=== PATIENT | female | born 1965 | race Caucasian/White ===

== ENCOUNTER 2020-10-01 07:33 | Observation (INO) ==
--- NOTE | 2020-09-26 09:18 | Anesthesiology Consultation ---
Date of Service September 26, 2020 Assessment & Plan (1) Encounter for pre-operative examination: Chart Review Chart Review: Acceptable Risk for Surgery and Patient NOT seen in Pre Admission Testing Per nursing assessment 09/18/20, patient denies any recent travel. 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 Wears PPE. No current Covid related symptoms. No known Covid infection in the past 90 days. Covid test 09/25/20= negative. Will leave to anesthesia discretion DOS if repeat rapid Covid test, additional PPE and/or additional surgery time needed DOS due to patient's occupation. History Surgery Operation Date: 10/01/20 09:20 Proposed Procedures p Panniculectomy - Jany Burnette MD Height/Weight Height: 5 ft 7 in Weight: 88.451 kg Allergies Allergy/AdvReac Type Severity Reaction Status Date / Time diphenhydramine Allergy Intermediate HEART Verified 09/18/20 09:01 FLUTTERS Medications Home Medications Medication Instructions Recorded Confirmed Last Taken doxycycline monohydrate 40 mg 40 mg PO QAM 07/17/20 09/18/20 Unknown capsule,immediate - delay release oxycodone-acetaminophen 5 mg-325 1 tab PO Q4H PRN #18 tab 09/10/20 09/10/20 Unknown mg tablet levothyroxine 175 mcg PO QAM 09/18/20 09/18/20 Unknown Past Medical History Medical History Fatty liver Hypertension hx - resolved following wt loss Hypothyroidism Migraines Sleep apnea "mild" - no CPAP/BiPAP Spinal stenosis Past Family History Family History Mother Liver cancer Other No family history of adverse response to anesthesia Past Surgical History Surgical History History of colonoscopy History of foot surgery Left History of gastric bypass History of meniscectomy of left knee History of partial hysterectomy History of tonsillectomy History of tubal ligation Hx of LASIK Social History Smoking Status: Never smoker Do You Dip or Chew Tobacco: No Hx Alcohol Use: No Hx Substance Use: No substance use type: does not use Lab Results Anesthesia Preop Results Results Anesthesia Widget: WBC 8.83 K/uL (4.8-10.8) 09/25/20 Hgb 14.7 g/dL (12.0-16.0) 09/25/20 Hct 44.0 % (37-47) 09/25/20 Plt 251 K/uL (130-400) 09/25/20 Na 144 mmol/L (136-145) 09/25/20 K 3.6 mmol/L (3.5-5.1) 09/25/20 Cl 112 mmol/L (98-107) H 09/25/20 CO2 26 mmol/L (21-32) 09/25/20 BUN 16 mg/dl (7-18) 09/25/20 Creat 0.79 mg/dl (0.6-1.2) 09/25/20 Glucose Level 143 mg/dl (70-99) H 09/25/20 PT 9.8 Seconds (9.0-12.0) 09/25/20 PTT 26.0 Seconds (21.0-31.0) 09/25/20 INR 1.0 (0.9-1.1) 09/25/20 Testing Electrocardiogram Date: 09/25/20 Findings: + NSR @ (92bpm) Minimal voltage criteria for LVH, may be normal variant. Nonspecific T wave abnormality.
[~2020-10-01 07:33] MED LIST: LR 15ML/HR IV SCH; ceFAZolin 2000MG 2,000 MG/15 ML SYR IV SCH
[2020-10-01] MEDS ORDERED: ONDANSETRON INJ 2 MG/ML 2 ML VIAL ONE ×2 (08:19→10:54)
[2020-10-01] MEDS ORDERED: DEXAMETHASONE SOD INJ 4 MG/ML VIAL ONE (08:19)
[2020-10-01] MEDS ORDERED: PROPOFOL IV EMULSION 10 MG/ML 20 ML VIAL IV ONE (08:19)
[2020-10-01] MEDS ORDERED: fentaNYL citrate 100 MCG/2 ML VIAL ONE (08:19)
[2020-10-01] MEDS ORDERED: LIDOCAINE HCL 2% 2 ML VIAL/AMP(20MG/ML) INFIL ONE (08:19)
[2020-10-01] MEDS ORDERED: MIDAZOLAM HCL 1 MG/ML 2ML VIAL ONE (08:20)
--- NOTE | 2020-10-01 09:35 | History & Physical Bridge Note ---
Date of Service October 01, 2020 History & Physical Bridge Note I have examined the patient, reviewed the History & Physical and in the interval since the performance of the History & Physical I have noted the following changes of clinical significance: no changes noted
[2020-10-01] MEDS ORDERED: BUPIVACAINE 0.25% 30 ML VIAL ONE (09:39)
[2020-10-01] MEDS ORDERED: LIDOCAINE/EPINEPHRINE 1% 20 ML VIAL ONE (09:39)
[2020-10-01] MEDS ORDERED: ONDANSETRON INJ 2 MG/ML 2 ML VIAL IV PRN ×2 (09:50→13:36)
[2020-10-01] MEDS ORDERED: ePHEDrine sulfate 50 MG/ML AMP IV PRN (09:50)
[2020-10-01] MEDS ORDERED: fentaNYL citrate 100 MCG/2 ML VIAL IV PRN (09:50)
[2020-10-01] MEDS ORDERED: ATROPINE SULFATE 0.1 MG/ML 10ML SYR IV PRN (09:50)
[2020-10-01] MEDS ORDERED: ePHEDrine sulfate 50 MG/ML SYR ONE (10:54)
[2020-10-01] MEDS ORDERED: THROMBIN FOR SOLN 20000 UNIT KIT ONE (10:54)
[2020-10-01] MEDS ORDERED: ROCURONIUM BROMIDE 10 MG/ML 5 ML VIAL IV ONE (10:54)
[2020-10-01] MEDS ORDERED: GELATIN SPONGE SZ 100 ONE (10:54)
[2020-10-01] MEDS ORDERED: NEOSTIGMINE METHYLSULFATE 5 MG/5 ML SYR ONE (10:57)
[2020-10-01] MEDS ORDERED: GLYCOPYRROLATE 0.2 MG/ML VIAL ONE (10:57)
[2020-10-01] MEDS ORDERED: HYDROmorphone INJ 2 MG/ML SYR/VIAL ONE (11:46)
--- NOTE | 2020-10-01 13:31 | Post Operative Brief Note ---
PG Immediate Post Op with CF Date of Surgery October 01, 2020 Pre & Post Diagnosis Operation Date: 10/01/20 09:20 Pre-Op Diagnosis: Abdominal Pannus Post-Op Diagnosis: Abdominal Pannus I identified the patient and participated in the time-out.: Yes Procedure Operation Date: 10/01/20 09:20 Actual Procedures p Panniculectomy(Not Applicable) - Jany Burnette MD Surgeon Jany Burnette MD Director Of Parks And Re[employer] Dolores Soto PA-C Estimated Blood Loss 50 Findings Consistent with Post-Op Diagnosis Specimens Specimen Description: Fresh Specimens: A. Abdominal Pannus Weight= 8.8lbs/3991.61g Drains Montiel Catheter and Ramesh-Landrum Drain (15fr channel drain x2)
[2020-10-01] MEDS ORDERED: MoRPHine SULFATE 2 MG/ML CARP IV PRN (13:36)
[2020-10-01] MEDS ORDERED: LORazepam 0.5 MG TAB PO PRN (13:36)
[2020-10-01] MEDS ORDERED: PROMETHAZINE HCL 12.5 MG in SODIUM CHLORIDE 0.9% 50 ML IV PRN (13:36)
[2020-10-01] MEDS ORDERED: ACETAMINOPHEN 325 MG TAB PO PRN (13:36)
[2020-10-01] MEDS ORDERED: MoRPHine SULFATE 4 MG/ML 1 ML CARP\\VIAL IV PRN (13:36)
[2020-10-01] MEDS ORDERED: oxyCODONE/ACETAMINOPHEN 5mg/325mg TAB PO PRN (13:36)
--- NOTE | 2020-10-01 13:37 | Operative Report ---
PG Post Operative Report Pre & Post Diagnosis Operation Date: 10/01/20 09:20 Pre-Op Diagnosis: Abdominal Pannus Post-Op Diagnosis: Abdominal Pannus I identified the patient and participated in the time-out.: Yes Procedure Operation Date: 10/01/20 09:20 Actual Procedures p Panniculectomy(Not Applicable) - Jany Burnette MD Surgeon Jany Burnette MD Bean Dumper Dolores Soto PA-C Estimated Blood Loss 50 Findings Consistent with Post-Op Diagnosis Specimens abdominal pannus Drains DULCE x2 Anesthesia Type General Complications none Disposition Disposition: Recovery Room Indications s/p massive weight loss, overhanging abdominal pannus and intertrigo Description of Procedure Risks, benefits, and alternatives of the procedure were explained to the patient who agreed and signed consent. She was identified and marked in the preoperative holding area. She was brought to the operating room where she was positioned supine and placed under general anesthesia without incident. Montiel catheter was placed. Surgical site was prepped and draped sterilely. A time-out procedure was performed. I reassessed my markings which included a lower horizontal abdominal incision with the midportion 7 cm above the vulvar commissure. Incision was marked bilaterally to the ASIS. I began by injecting 1% lidocaine with epinephrine ruddy ng the planned incision. The lower abdominal incision was made using a 15-blade scalpel to incise epidermis and superficial dermis followed by electrocautery to incise deep dermis, subcutaneous fat, Kristine's fascia down to the abdominal wall. Care was taken to bevel superiorly in order to avoid encountering the inguinal region. Electrocautery was used to elevate the anterior abdominal skin flap ligating the perforating vessels with 3-0 Vicryl ties and electrocautery. Dissection was carried up to the level of the umbilicus in the midline. At this point, a 15-blade scalpel was used to circu mscribe the umbilicus. A vertical midline incision was then made from the incision to the umbilicus and divided in the midline using electrocautery. The umbilicus was then dissected out using electrocautery down to abdominal wall. The umbilical stalk appeared viable throughout the procedure. In order to facilitate inset of the umbilicus, dissection was continued for a short distance superior to the umbilicus in a narrow tunnel in the midline. At this point, the bed was flexed and the mid portion of the superior skin flap was inset above the mons pubis using 2-0 Vicryl suture. Skin flaps were marked for excision. A 15-blade scalpel was used to make these incisions and the incision was deepened through dermis, subcutaneous fat, Kristine's fat using electrocautery. A 15 [place] Shan drains were placed in the wound bed and brought out through a separate stab incision in the mons pubis. The drains were sutured into place using 3-0 nylon. The umbilicus was brought out through an inverted triangular incision in the abdominal wall. Wound closure was then begun lateral to medial using 2-0 Vicryl Kristine's fascia sutures, 2-0 Vicryl deep dermal sutures, 2-0 PDO running superficial Quill suture, 3-0 Monocryl running subcuticular suture. Umbilicus was brought out through the inverted triangle incision and was sutured into place using 4-0 chromic half buried horizontal mattress sutures. The umbilicus was dressed using Xeroform and the incision was dressed using Dermabond Prineo followed by dry dressings and an abdominal binder. Prior to closure, a total of 20 mL of 0.25% Marcaine plain were injected into the fascia as well as along the incisions. The procedure was tolerated well. The patient was awakened and transferred to recovery in satisfactory condition. Dolores Soto PA-C was present and scrubbed throughout the entire procedure and was instrumental in providing retraction of the pannus and assisting in simultaneous wound closure. I attest to the content of the Intraoperative Record and any orders documented therein. Any exceptions are noted below.
--- NOTE | 2020-10-01 14:00 | Surgery Progress Note ---
Date of Service October 01, 2020 Assessment & Plan (1) Abdominal pannus: Admission and Anticipated Discharge Date Admission Date: No concern for hematoma. Will recheck in AM, anticipate d/c in AM. Subjective Patient is seen in PACU. She is resting and offers no concerns. Physical Exam Physical Exam: abd binder in place. drains with scant output. Results & Data ([facility]) Vital Signs (Past 12 Hours) Vital Signs Temp Pulse Pulse Resp BP BP Pulse Ox 10/01/20 13:55 68 20 125/78 99 10/01/20 13:48 36.0 C L 76 15 130/71 99 10/01/20 07:50 36.6 C 60 20 125/89 96 PG Care Time/CCT Total # of Minutes Spent Total Time Spent with Patient: Total time spent is greater than 50% in coordination of care (as documented) at patient's floor/unit and/or counseling patient: Coding Level of Care Code None Diagnoses Abdominal pannus E65
--- NOTE | 2020-10-01 14:02 | Anesthesiology Progress Note ---
Date of Service October 01, 2020 Anesthesia Post Procedure Vital Signs Vital Signs: Temp Pulse Pulse Resp BP BP Pulse Ox 10/01/20 13:55 68 20 125/78 99 10/01/20 13:48 36.0 C L 76 15 130/71 99 10/01/20 07:50 36.6 C 60 20 125/89 96 Transfer of Care Handoff Completed per policy Notes Mental Status: alert / awake / arousable Patient Amnestic to Procedure: Yes Nausea / Vomiting: adequately controlled Pain: adequately controlled Airway Patency, RR, SpO2: stable & adequate BP & HR: stable & adequate Hydration State: stable & adequate Anesthetic Complications: no major complications apparent
[2020-10-01] MEDS: D5W AND 1/2NSS 1,000 ML IV SCH (15:24)
[2020-10-01] MEDS: ceFAZolin 2000MG 2,000 MG/15 ML SYR IV SCH (18:02)
[2020-10-01] MEDS: oxyCODONE/ACETAMINOPHEN 5mg/325mg TAB PO PRN (19:47)
[2020-10-02] MEDS: oxyCODONE/ACETAMINOPHEN 5mg/325mg TAB PO PRN ×2 (00:09→06:10)
[2020-10-02] MEDS: ceFAZolin 2000MG 2,000 MG/15 ML SYR IV SCH (01:45)
[2020-10-02] MEDS: D5W AND 1/2NSS 1,000 ML IV SCH (03:45)
[2020-10-02] MEDS ORDERED: DOCUSATE SODIUM 100 MG CAP PO ONE (08:30)
--- NOTE | 2020-10-02 08:33 | Surgery Progress Note ---
Date of Service October 02, 2020 Assessment & Plan (1) Abdominal pannus: Admission and Anticipated Discharge Date Admission Date: POD#1 s/p panniculectomy 1. patient request Colace, order placed 2. d/c home today, office follow-up tomorrow Subjective Patient is doing well, VSS, pain controlled. She is tolerating regular diet. Physical Exam Constitutional: well developed and well nourished; no acute distress Skin: + incision (CDI, some bloody drainage on gauze, drains with 10cc bloody output) Results & Data ([facility]) Vital Signs (Past 12 Hours) Vital Signs Temp Pulse Resp BP Pulse Ox 10/02/20 03:14 36.9 C 74 16 110/71 96 10/01/20 22:19 36.8 C 76 18 104/65 95 PG Care Time/CCT Total # of Minutes Spent Total Time Spent with Patient: Total time spent is greater than 50% in coordination of care (as documented) at patient's floor/unit and/or counseling patient: Coding Level of Care Code None Diagnoses Abdominal pannus E65
[2020-10-02] MEDS ORDERED: MULTIVITAMIN TAB PO SCH (09:00)
--- NOTE | 2020-10-03 09:07 | Discharge Summary ---
Date of Service October 03, 2020 Admission HPI Per Admitting Provider see admission H&P Admission Exam Per Admitting Provider see admission H&P Principal Diagnosis abdominal pannus Discharge Exam Constitutional well developed and well nourished; no acute distress Skin + incision (CDI, some bloody drainage on gauze, drains with 10cc bloody output) Discharge Data Allergies Allergy/AdvReac Type Severity Reaction Status Date / Time diphenhydramine Allergy Intermediate HEART Verified 10/01/20 08:07 FLUTTERS Procedures Performed Operation Date: 10/01/20 09:20 Actual Procedures p Panniculectomy(Not Applicable) - Jany Burnette MD Hospital Course (1) S/P panniculectomy: Patient presented to [facility] with history of abdominal pannus. She was taken to the OR and underwent panniculectomy. There were no intraoperative complications. She was taken to recovery and transferred to med/surg for observation. On POD#1, she was feeling well. She was tolerating a regular diet and ambulating. She was able to void after catheter was removed. On exam, her vitals were stable. Her incisions were CDI. Her drains had appropriate output. She was discharged home with instructions to follow-up in the office in one day. Total Time Total Time Spent Total Time Spent (In Minutes): 20 Total Time Includes: Examination of the Patient, Discharge Planning and Communication With Other Providers Discharge Plan Discharge Items Patient Disposition: Home - Self-Care Reason For Visit: Abdominal Pannus Discharge Diagnosis: s/p panniculectomy Activity: As commented below Non-emergency contact: Surgeon Call non-emergency contact if: you have any medication questions, your pain is not controlled, you have a fever, your wound has increased redness and your wound has increased drainage Follow-up/Referrals: Maddie Xiao DO [Primary Care Provider] - Diet: Regular Addtl Attending Provider Instructions: ACTIVITY RECOMMENDATIONS: __Normal activities _x_No bending, lifting or straining. Do not stand up straight until it feels comfortable. You may want to sleep in a recliner the first few days. __No driving __Driving allowed when you are off pain medications _x_Walking permitted __You should have help at home for ___ days DRESSINGS: __No dressings required _x_Keep dressings dry/in place until first office visit. You must remain in abdominal binder at all times. __Remove dressings ___ and leave dressings off __Apply ice ___ days __Remove dressings and reapply garment __Apply antibiotic ointment (Bacitracin, Neosporin, etc) to wounds 3-4 times/day for 10 days BATHING: _x_Keep dressings dry _x_Sponge bathing permitted away from incision/abdomen __Showering permitted _x_No swimming, hot tubs or soaking in a tub MEDICATIONS: Resume previous medications unless instructed otherwise by your surgeon. _x_Do not use aspirin, Motrin, Advil or Ibuprofen as these may promote bleeding. Please use Tylenol. _x_Prescription(s) provided: pain medication was prescribed at your last office visit OTHER INSTRUCTIONS: _x_Record drain output 2-3 times per day SPECIAL CARE INSTRUCTIONS: * It is normal to have a mild fever after surgery. If your temperature is higher than 101.5 degrees F, please call the office at [phone]. * Constipation is a typical side effect of pain medication. An [id number] stool softener will help relieve this. * Leaking around surgical drains may occur and should not cause concern. Sometimes these drains become clogged. If this happens, remove the bulb and milk the clot out of the tube, then replace the bulb. * Drainage from wounds after liposuction is normal and should be expected. Garments will become soiled. You should protect furniture and bedding. This drainage should mostly subside within 2-3 days. Leave garments in place unless instructed to remove them. * If you have unusual drainage from a wound or are concerned you have an infection or have any questions or concerns, please call the office at [phone]. FOLLOW UP VISIT: If not already scheduled, please call the office, , when you return home after surgery to schedule an appointment to be seen in _1__ days. Pending Studies at Discharge: Yes Studies:: pathology Stand-Alone Forms: [facility] Medications and DC Order Prescriptions: Continued oxycodone-acetaminophen [Endocet] 5-325 mg tablet 1 tab PO Q4H PRN (Reason: pain) Qty: 18 RF: 0 doxycycline monohydrate [Oracea] 40 mg capsule,IR - delay rel,biphase 40 mg PO QAM RF: 0 levothyroxine 175 mcg tablet 175 mcg PO QAM RF: 0 Discharge Orders: Discharge Order (Routine); Ordered 10/02/20 Ordered By: Dolores Soto Admission Data Admit Date/Time: 10/01/20 13:36 Attending Provider: Jany Burnette Admit Provider: Jany Burnette Primary Care Provider: Maddie Xiao Other Interventions: Discharge Summary Assessment (RN) Last Done: 10/02/20 10:24 Coding Level of Care Code 94671 OBS Care - Discharge Diagnoses S/P panniculectomy Z98.890
== END 2020-10-02 10:59 | disposition home or self-care (01) ==
LOC: ASU 07:33 → 3W 07:33